=== PATIENT | female | born 1950 | race Caucasian/White ===

== ENCOUNTER 2017-04-23 09:22 | Emergency (ER) | payer MEDICARE ==
[~2017-04-23] VITALS: Ht 162.6 cm; Wt 65.8 kg
[2017-04-23 09:29] VITALS: BP 159/89; PULSE 66; RESP 15; TEMP 97.6; O2SAT 99
--- NOTE | 2017-04-23 10:40 | PD ---
HPI Chief Complaint: Abdominal Pain Time Seen by Provider: 09:42 Travel History International Travel<30 days: No Contact w/Intl Traveler<30days: No Traveled to known affect area: No History of Present Illness HPI 67-year-old woman, presents emergent [place] of intermittent sharp pulsating right lower quadrant pain is been off-and-on for years. She's been evaluated in the past with CAT scans labs and imaging and has not had an etiology identified. States she'll he gets the pain intermittently. She got up last night and this morning so she went to an urgent care who referred her to the emergency department. She has no pain hours but states she's has a mild amount of tenderness. No urinary symptoms. No nausea or vomiting. No fevers or chills. No other complaints. History Past Medical History Medical History: Denies Significant Hx Tetanus Vaccination: Unknown Influenza Vaccination: No Social History Alcohol Use: No Tobacco Use: No Allergies-Medications (Allergen,Severity, Reaction): Coded Allergies: Flu Vaccine (Verified Allergy, Severe, Swelling, 04/23/17) "SWELLING UNDER GLANDS IN ARM" Reported Meds & Prescriptions Reported Meds & Active Scripts Active No Active Prescriptions or Reported Medications Review of Systems Except as stated in HPI: all other systems reviewed are Neg Physical Exam Narrative GENERAL: Well-appearing 67-year-old woman, no acute distress. SKIN: Focused skin assessment warm/dry. HEAD: Atraumatic. Normocephalic. CARDIOVASCULAR: Regular rate and rhythm. No murmur appreciated. RESPIRATORY: No accessory muscle use. Clear to auscultation. Breath sounds equal bilaterally. GASTROINTESTINAL: Abdomen soft, non-tender, nondistended. Hepatic and splenic margins not palpable. MUSCULOSKELETAL: No obvious deformities. Data Data Last Documented VS Vital Signs Date Time Temp Pulse Resp B/P Pulse Ox O2 Delivery O2 Flow Rate FiO2 04/23/17 09:29 97.6 66 15 159/89 99 MDM Medical Decision Making Medical Screen Exam Complete: Yes Emergency Medical Condition: Yes Differential Diagnosis Scarring from previous endometriosis, renal lithiasis, colitis or enteritis, other Narrative Course Medical decision making 67-year-old with intermittent right lower quadrant pain times years, looks well , no pain now, benign exam, recommend no further diagnostic testing at this time , and supportive treatment and outpatient follow-up is symptoms persist. Diagnosis Primary Impression: Abdominal pain Additional Instructions: Abdominal pain. Follow-up with your doctor. Med/Other Pt SpecificInfo: No Change to Meds Scripts No Active Prescriptions or Reported Meds Disposition: 01 DISCHARGE HOME Condition: Juvenal Alberto MD Apr 23, 2017 10:40
== END 2017-04-23 10:58 | disposition home or self-care (01) ==
LOC: PHED 09:22
DX: R10.31 Right lower quadrant pain (principal)
CPT/HCPCS: 99282